=== PATIENT | male | born 1985 | race Caucasian/White ===

== ENCOUNTER 2016-09-26 02:31 | Emergency (ER) | payer OTHER ==
[~2016-09-26] VITALS: Ht 170.2 cm; Wt 63.0 kg
[~2016-09-26 02:31] MED LIST: IBUP-1542 PO; ZOF8 PO; [UNRECOGNIZED DRUG - REMARK]
[2016-09-26 02:33] VITALS: Ht 170.2 cm; Wt 63.0 kg
[2016-09-26] MEDS ORDERED: SOD CHLORIDE 0.9% 1,000 ML IV STA (03:58)
[2016-09-26] MEDS ORDERED: morphine 4 MG/ML VIAL IV STA (03:58)
[2016-09-26] MEDS ORDERED: ONDANSETRON 4 MG INJ IV STA (03:58)
[2016-09-26 04:30] LABS: ADD SCAN DIFF NO
[2016-09-26 04:33] LABS: BASOPHILS % 0.3 % (0.0-2.0); EOSINOPHILS # 0.1 10^3/ul (0.0-0.5); EOSINOPHILS % 1.1 % (0.0-7.0); HEMATOCRIT 40.9 % (42.0-52.0); HEMOGLOBIN 14.8 g/dl (14.0-18.0); LYMPHOCYTES # 1.2 10^3/ul (0.8-2.9); LYMPHOCYTES % 18.9 % (15.0-51.0); MEAN CORPUSCULAR HEMOGLOBIN 31.7 pg (29.0-33.0); MEAN CORPUSCULAR HGB CONC 36.2 g/dl (32.0-37.0); MEAN CORPUSCULAR VOLUME 87.6 fl (82.0-101.0); MEAN PLATELET VOLUME 9.3 fl (7.4-10.4); MONOCYTE # 0.4 10^3/ul (0.3-0.9); MONOCYTES % 5.6 % (0.0-11.0); NEUTROPHIL # 4.6 10^3/ul (1.6-7.5); NEUTROPHILS % 73.8 % (39.0-77.0); PLATELET COUNT 163 10^3/UL (140-415); RED BLOOD COUNT 4.67 10^6/ul (4.70-6.10); RED CELL DISTRIBUTION WIDTH 14.3 % (11.5-14.5); WHITE BLOOD COUNT 6.2 10^3/ul (4.8-10.8)
[2016-09-26 04:38] LABS: ADD UMIC NO; URINE BILIRUBIN (Dip) NEGATIVE (NEGATIVE); URINE BLOOD (Dip) NEGATIVE (NEGATIVE); URINE COLOR YELLOW (YELLOW); URINE GLUCOSE (Dip) NEGATIVE (NEGATIVE); URINE KETONES (Dip) NEGATIVE (NEGATIVE); URINE LEUKOCYTE ESTERASE (Dip) NEGATIVE (NEGATIVE); URINE NITRITE (Dip) NEGATIVE (NEGATIVE); URINE TOTAL PROTEIN (Dip) NEGATIVE (NEGATIVE); URINE UROBILINOGEN (Dip) 0.2 E.U./dL (0.1-1.0)
[2016-09-26 05:26] LABS: ALBUMIN 4.9 g/dl (3.3-4.9); BILIRUBIN,INDIRECT 1.7 mg/dl (0-1.1); BILIRUBIN,TOTAL 1.7 mg/dl (0.2-1.3); CALCIUM 9.6 mg/dl (8.4-10.2); CREATININE 0.92 mg/dl (0.61-1.24)
[2016-09-26 05:27] LABS: ALBUMIN/GLOBULIN RATIO 1.58
--- NOTE | 2016-09-26 05:29 | RADRPT ---
PROCEDURE: Abdominal ultrasound, limited. CLINICAL INDICATION: Abdominal pain. TECHNIQUE: Multiple real-time images were acquired of the patient's right upper abdomen utilizing a high resolution transducer. COMPARISON: None FINDINGS: The liver demonstrates normal echogenicity and size measuring 14.9 cm. There is no focal mass or in trahepatic biliary ductal dilatation. The portal vein is patent. The gallbladder is not distended. Multiple echogenic gallstones are identified. There is focal tenderness over the gallbladder. Th ere is no pericholecystic fluid or gallbladder wall thickening. The common bile duct measures 4.6 m m in maximal dimension. The visualized portions of the pancreas are unremarkable. No free fluid is identified. The right kidney is normal size and echogenicity measuring 9.4 cm. There is no focal renal mass or echogenic calculus identified. There is no obstructive uropathy. IMPRESSION: Cholelithiasis with positive sonographic Cullen's sign. There is no gallbladder wall thickening or pericholecystic fluid. .Lizandro Culver MD, Date Time Electronically viewed and signed by .Lizandro Culver MD, MD on 09/26/2016 05:28 .T/
--- NOTE | 2016-09-26 05:55 | RADRPT ---
PROCEDURE: XR Abdomen. CLINICAL INDICATION: Upper abdominal pain TECHNIQUE: Upright and supine abdominal x-rays were obtained. COMPARISON: None. FINDINGS: The bowel gas pattern is nonobstructive. No definite free air is seen. Probable calcified left pelv ic phlebolith. Heart size top normal to slightly enlarged. Median sternotomy wires. The visualized bony skeleton is unremarkable. IMPRESSION: No definite obstruction or free air. RPTAT: HLBE Amna Mcmahon, Physician Date Time Electronically viewed and signed by Amna Mcmahon, Physician on 09/26/2016 05:54 LE/
[2016-09-26] MEDS ORDERED: HYDR-906 PO (06:25)
[2016-09-26] MEDS ORDERED: ONDA4TAB11 PO (06:25)
--- NOTE | 2016-09-26 06:33 | ERD ---
ER Documentation Chief Complaint Date/Time DATE: 09/26/16 TIME: 06:31 Chief Complaint RUQ abd pain since 2 hours ago HPI 30-year-old male presents emergency room for right upper quadrant pain for 2 hours. Pain is sharp and coming by some nausea but no vomiting. He has not had pain like this before. He has no other medical problems and has not had abdominal surgery. ROS All systems reviewed and are negative except as per history of present illness. Medications Home Meds Active Scripts Ondansetron (Zofran Odt) 4 Mg Tab.rapdis, 4 MG PO Q6, #10 Prov:ORA CHRISTY DO 09/26/16 Hydrocodone/Acetaminophen (Barrington 5-325 Tablet) 1 Each Tablet, 1 EACH PO Q6, #20 TAB Prov:ORA CHRISTY DO 09/26/16 Ondansetron Hcl* (Zofran* ODT) 8 mg -ODT Tab.disper, 8 MG PO Q6 Y for NAUSEA AND /OR VOMITING, #10 TAB Prov:SADE WHITE PA-C 04/05/15 Ibuprofen* (Motrin*) 600 Mg Tab, 600 MG PO Q6, #20 TAB Prov:SADE WHITE PA-C 04/05/15 Reported Medications [Antibiotics,Cough Meds] No Conflict Check 06/03/12 Allergies Allergies: Coded Allergies: No Known Drug Allergies (Verified Allergy, Unknown, 04/05/15) Uncoded Allergies: NONE (Allergy, Unknown, 04/05/15) PMhx/Soc History of Surgery: Yes (Open heart sx: septal defect repaired age 8) Anesthesia Reaction: No Hx Neurological Disorder: Yes (migraines) Hx Respiratory Disorders: No 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 Neck: Full range of motion..~ No meningismus. Resp: Clear to auscultation bilaterally Cardio: Regular rate and rhythm, no murmurs Abd: Soft, mild right upper quadrant tenderness underneath ribs, no guarding or rebound, non distended. Normal bowel sounds Skin: No petechiae or rashes Back: No midline or flank tenderness Ext: No cyanosis, or edema Neur: Awake and alert Psych: Normal Mood and Affect Result Diagram: 09/26/16 0413 09/26/16 0413 Results 24 hrs Laboratory Tests Test 09/26/16 04:13 White Blood Count 6.210^3/ul Red Blood Count 4.6710^6/ul Hemoglobin 14.8g/dl Hematocrit 40.9% Mean Corpuscular Volume 87.6fl Mean Corpuscular Hemoglobin 31.7pg Mean Corpuscular Hemoglobin Concent 36.2g/dl Red Cell Distribution Width 14.3% Platelet Count 33414^3/UL Mean Platelet Volume 9.3fl Neutrophils % 73.8% Lymphocytes % 18.9% Monocytes % 5.6% Eosinophils % 1.1% Basophils % 0.3% Nucleated Red Blood Cells % 0.0/100WBC Neutrophils # 4.610^3/ul Lymphocytes # 1.210^3/ul Monocytes # 0.410^3/ul Eosinophils # 0.110^3/ul Basophils # 0.010^3/ul Nucleated Red Blood Cells # 0.010^3/ul Urine Color YELLOW Urine Clarity CLEAR Urine pH 5.5 Urine Specific [place] 1.025 Urine Ketones NEGATIVE Urine Nitrite NEGATIVE Urine Bilirubin NEGATIVE Urine Urobilinogen 0.2 E.U./dL Urine Leukocyte Esterase NEGATIVE Urine Hemoglobin NEGATIVE Urine Glucose NEGATIVE% Urine Total Protein NEGATIVE Sodium Level 141mmol/L Potassium Level 4.0mmol/L Chloride Level 106mmol/L Carbon Dioxide Level 29mmol/L Anion Gap 10 Blood Urea Nitrogen 21mg/dl Creatinine 0.92mg/dl Glucose Level 106mg/dl Calcium Level 9.6mg/dl Total Bilirubin 1.7mg/dl Direct Bilirubin 0.00mg/dl Indirect Bilirubin 1.7mg/dl Aspartate Amino Transf (AST/SGOT) 20IU/L Alanine Aminotransferase (ALT/SGPT) 39IU/L Alkaline Phosphatase 82IU/L Total Protein 8.0g/dl Albumin 4.9g/dl Globulin 3.10g/dl Albumin/Globulin Ratio 1.58 Lipase 82U/L Current Medications Medications (Trade) Dose Ordered Sig/Diane Route PRN Reason Start Time Stop Time Status Last Admin Dose Admin Sodium Chloride (NS) 1,000 ml @ 1,000 mls/hr Q1H STAT IV 09/26/16 03:58 09/26/16 04:57 DC 09/26/16 04:18 Morphine Sulfate (morphine) 4 mg ONCE STAT IV 09/26/16 03:58 09/26/16 03:59 DC Ondansetron HCl (Zofran Inj) 4 mg ONCE STAT IV 09/26/16 03:58 09/26/16 03:59 DC 09/26/16 04:18 Procedures/MDM New diagnosis of gallstones in patient with biliary colic. No signs of gallbladder obstruction ultrasound. Mildly elevated bilirubin with no elevated LFTs. Patient's pain completely resolved with morphine. Also given Zofran IV fluids. He is asymptomatic in the ER going to discharge with primary care follow-up as well as instructions to obtain a general surgery referral for possible gallbladder removal. Discharging with Barrington and Zofran. Bladder ultrasound interpretation: Gallstones without persistent colic fluid, gallbladder wall thickening, ductal dilation. Departure Diagnosis: Primary Impression: Biliary colic Condition: Stable Patient Instructions: Biliary Colic With Gallstone (Confirmed) Additional Instructions: Call your primary care doctor TOMORROW for an appointment during the next 1-2 days. Get a general surgery referral for possible Gallbladder removal. See the doctor sooner or return here if your condition worsens before your appointment time. ROA CHRISTY DO Sep 26, 2016 06:33
[2016-09-26 06:42] VITALS: BP 110/64; PULSE 65; RESP 20; TEMP 98.3
== END 2016-09-26 06:49 | disposition home or self-care (01) ==
LOC: E/R 02:31
DX: K80.50 Calculus of bile duct without cholangitis or cholecystitis without obstruction (principal); R11.0 Nausea; R40.2142 Coma scale, eyes open, spontaneous, at arrival to emergency department; R40.2252 Coma scale, best verbal response, oriented, at arrival to emergency department; R40.2362 Coma scale, best motor response, obeys commands, at arrival to emergency department
CPT/HCPCS: 36415; 74010; 76705; 80053; 81003; 83690; 85025; 96374; 99285; J2270; J2405; J7030